=== PATIENT | female | born 1995 ===

== ENCOUNTER → 2024-11-05 | Day surgery (SDC) | payer BC ==
[~2024-11-05] MED LIST: ESMOLOL HCL 10 ML IV ONE; FENTANYL CITR 100 MCG/2 ML ONE; GLYCOPYRROLATE 0.2 MG/ML SYR ONE; KETOROLAC 30 MG/ML INJ ONE; LIDOCAINE 1% MPF 5 ML VIAL ONE; MIDAZOLAM HCL 2 MG/2 ML INJ ONE; NEOSTIGMINE 1 MG/ML -10 ML VIAL ONE; ONDANSETRON 4 MG/2 ML VIAL ONE; ROCURONIUM 50 MG/5 ML VIAL IV ONE; Ringers Lactate 1,000 ML IV ONE; propofoL 200 MG/20 ML VIAL IV ONE
[2024-11-05 10:48] LABS: ALT/SGPT 17 U/L (13-56); Albumin 3.6 g/dL (3.4-5.0); Albumin/Globulin Ratio 0.9 (1.1-1.8); Alkaline Phosphatase 98 U/L (45-117); BUN Blood Urea Nitrogen 10 mg/dL (7-18); Bicarbonate 26 mEq/L (21-32); Bilirubin Total 0.4 mg/dL (0.2-1.0); Glomerular Filtration Rate 124 ml/min (=/>90); Glucose Level 101 mg/dL (74-106); Protein, Total 7.6 g/dL (6.4-8.2); Sodium Level 140 mEq/L (136-145)
[2024-11-05 10:49] LABS: AST/SGOT < 10 U/L (15-37)
[2024-11-05] MEDS: CEFOXITIN SODIUM 2 GM/VIAL ONE (13:35)
[2024-11-05] MEDS: LIDOCAINE HCL/EPINEPHRINE 20 ML MDV ONE (13:44)
--- NOTE | 2024-11-05 14:21 | P.OP ---
Preoperative diagnosis: Biliary Colic Postoperative diagnosis: Biliary Colic Primary procedure: Laparoscopic Cholecystectomy with ICG Cholangiography Anesthesia: GETA + Local Estimated blood loss: <5cc Specimen: Gallbladder Findings: Distended Gallbladder Complications: None Transferred to: Recovery Room Condition: Good
[2024-11-05] MEDS: HYDROCODONE/APAP 10/325 TAB ONE (15:44)
[2024-11-05 16:13] VITALS: BP 154/85; TEMP 97.4; O2SAT 98
--- NOTE | 2024-11-06 00:23 | OP ---
Date of Procedure: 11/05/2024 Surgeon: Ulysses Bullock MD, Preoperative Diagnosis: Biliary colic. Postoperative Diagnosis: Biliary colic. Procedure Performed: Laparoscopic cholecystectomy with indocyanine green cholangiography. Anesthesia: General endotracheal plus local with 1% lidocaine with epinephrine. Estimated Blood Loss: 5 cc. Specimen: Gallbladder. Findings: Distended gallbladder. Complications: None. Disposition: Patient was transferred to the recovery room in good condition. Procedure In Detail: After informed consent was obtained, patient was brought to the operating room, prepped and draped in the usual sterile fashion, after adequate anesthesia was achieved. I anesthet ized an area of the supraumbilical position down to subcutaneous tissue. 5-mm 0-degree optical troca r was introduced into the abdomen without incident or complication. Insufflation was obtained to 15 mmHg, at this time. There was no injury to vital structures upon entry into the abdomen. Three rebekah tional trocars were placed, one in the epigastrium, one in the right upper quadrant, one in the right mid abdomen. All these was similar anesthetized and sharply incised. 5 mm trocar was placed under direct visualization without incident or complication. The umbilical trocar was then upsized to 12 m m under direct visualization without incident or complication. Patient positioned head up right-side up position. Ratcheted grasper was used to grasp the patient's gallbladder, placed it towards the p atient's right shoulder. Dissection continued down to the [place] pouch of the gallbladder. Ivána jag identifying 2 structures, identified both cystic duct and cystic artery. These were skeletonize d at this point, the critical view of safety was obtained. At this point, indocyanine green cholangi ography confirmed the anatomy and cystic duct and common duct confluence not near the proposed transe ction plane. At this point, double titanium clips being placed doubly on the proximal side and singl y on the distal side, both cystic duct and cystic artery. These structures were then ligated between Endo teresa without incident or complication. The gallbladder was then removed from the hepatic fos sa without incident or complication using electrocautery placed in EndoCatch bag, removed through the umbilical trocar site, sent off for pathologic examination. The abdomen was then re-insufflated, at this point. The area was copiously irrigated in the right upper quadrant. No additional hemostatic measures required and the clips found in good anatomic position. There was no leakage of bile confi rmed once again on indocyanine green cholangiography. At this point, remaining effluent was suctione d out after the patient was positioned back in neutral position. At this point, the 12 mm trocar sit e was closed using a Kevin suture passer with 0 Vicryl in interrupted fashion with good roxana roximation of the tissues. The abdomen was desufflated under direct vision without incident or compl ication. The remaining trocars were removed. All skin incisions were then copiously irrigated and c losed with a 4-0 Monocryl in a running fashion. Dermabond was placed over top. The patient tolerate d the procedure without incident or complication, transferred to PACU in good condition. All counts were correct at the end of the case. ADDY/NAIBAL Voice ID: [id number] Report ID: [id number]
--- NOTE | 2024-11-08 12:13 | EKG ---
Test Date: 2024-11-05 Test Time: 11:45:37 Lozenge Maker Helper: CHICHI MEASUREMENT RESULTS: Intervals: Rate: 83 MS: 178 QRSD: 80 QT: 346 QTc: 406 [place]: P: 27 MS: 178 QRS: 16 T: 17 INTERPRETIVE STATEMENTS: Normal sinus rhythm Normal ECG No previous ECG available for comparison Electronically Signed On 11-08-24 12:06:04 PROFILING MACHINE OPERATOR by Enrique Zafar
== END | disposition home or self-care (01) ==
LOC: OR 09:40
PROVIDERS: ATTEND Surgery
PROC: BF50200 Other Imaging of Bile Ducts using Fluorescing Agent, Indocyanine Green Dye, Intraoperative (ICD-10-PCS; 2024-11-05)
PROC: 0FT44ZZ Resection of Gallbladder, Percutaneous Endoscopic Approach (ICD-10-PCS; principal; 2024-11-05 13:00)
DX: K80.10 Calculus of gallbladder with chronic cholecystitis without obstruction (principal); R10.11 Right upper quadrant pain
CPT/HCPCS: 93005; 36415; 81025; 88304; 80053; 47563; J2704; J2710; J2003; J2250; J3010; J0694; J2405; J7120